=== PATIENT | female | born 1970 ===

== ENCOUNTER 2017-07-01 11:57 | Emergency (ER) | payer OTHER ==
[2017-07-01] MEDS ORDERED: Aluminum Hydroxide/Magnesium Hydroxide Susp (30 mL) PO STA (12:46)
[2017-07-01 13:03] LABS: SQUAMOUS EPITHIAL 2 /hpf (0-5); URINE BILIRUBIN NEGATIVE (NEGATIVE); URINE BLOOD 2+ (NEGATIVE); URINE CALCIUM OXALATE CRYSTALS MANY /hpf (<OCC); URINE CLARITY Hazy (Clear); URINE COLOR Yellow (YELLOW); URINE GLUCOSE (UA) NORMAL (Normal); URINE HYALINE CAST 0-2 /lpf (0-2); URINE LEUKOCYTE ESTERASE NEG Leu/uL (Negative); URINE PROTEIN 2+ mg/dL (NEGATIVE); URINE UROBILINOGEN NORMAL mg/dL (0.2-1.0)
[2017-07-01] MEDS ORDERED: Aluminum Hydroxide/Magnesium Hydroxide Susp (30 mL) ONE (13:06)
[2017-07-01 13:15] LABS: BASO % 0.3 % (0.0-2.0); EOS # 0.2 K/uL (0.0-0.7); EOS % 2.8 % (0.0-4.0); HEMOGLOBIN 13.7 g/dL (11.0-16.0); LYMPH # 1.4 K/uL (1.0-4.3); LYMPH % 23.7 % (20.0-40.0); MEAN CELL VOLUME 87.4 fL (81.0-99.0); MEAN CORPUSCULAR HEMOGLOBIN 30.9 pg (27.0-31.0); MEAN CORPUSCULAR HGB CONC 35.3 g/dL (33.0-37.0); MEAN PLATELET VOLUME 8.1 fL (7.2-11.7); MONO # 0.4 K/uL (0.0-0.8); MONO % 7.4 % (0.0-10.0); NEUT % 65.8 % (50.0-75.0); NRBC % 0.1 % (0.0-2.0); RBC 4.45 Mil/uL (3.80-5.20); RED CELL DISTRIBUTION WIDTH 13.3 % (11.5-14.5); WHITE BLOOD COUNT 6.1 K/uL (4.8-10.8)
--- NOTE | 2017-07-01 13:27 | C.PDOC ---
History Of Present Illness 46yo female, presents to ED with complaints of epigastric pain since last night. She describes the pain as a burning sensation and is associated with nausea. Patient states last night, she had eggs, black beans and rice, which is within her normal diet; patient states her last bowel movement was this morning and was normal. She denies any urinary discomfort, back pain, fever, chills, chest pain, diarrhea. Patient reports she has a family history of gallbladder disease and she is concerned her presentation may be related to her gallbladder. She has no other medical complaints. Time Seen by Provider: 07/01/17 12:39 Chief Complaint (Nursing): Abdominal Pain History Per: Patient History/Exam Limitations: no limitations Onset/Duration Of Symptoms: Days Current Symptoms Are (Timing): Still Present Location Of Pain/Discomfort: Epigastric Quality Of Discomfort: Burning, "Pain" Associated Symptoms: Nausea. denies: Vomiting, Back Pain, Urinary Symptoms Past Medical History Reviewed: Historical Data, Nursing Documentation, Vital Signs Vital Signs: Last Vital Signs Temp 98.2 F 07/01/17 14:10 Pulse 72 07/01/17 14:10 Resp 18 07/01/17 14:10 BP 126/78 07/01/17 14:10 Pulse Ox 99 07/01/17 14:10 - Medical History PMH: Hyperthyroidism Surgical History: No Surg Hx Family History: States: Other - Social History Hx Alcohol Use: No Hx Substance Use: No - Immunization History Hx Tetanus Toxoid Vaccination: Yes Hx Influenza Vaccination: Yes Hx Pneumococcal Vaccination: Yes Review Of Systems Except As Marked, All Systems Reviewed And Found Negative. Constitutional: Negative for: Fever, Chills Cardiovascular: Negative for: Chest Pain Respiratory: Negative for: Shortness of Breath Gastrointestinal: Positive for: Nausea, Abdominal Pain. Negative for: Vomiting , Diarrhea Genitourinary: Negative for: Frequency, Hematuria Musculoskeletal: Negative for: Back Pain Physical Exam - Physical Exam Appears: Non-toxic, No Acute Distress Skin: Normal Color, Warm, Dry Head: Atraumatic, Normacephalic Eye(s): bilateral: Normal Inspection, EOMI Neck: Normal ROM, Supple Chest: Symmetrical Cardiovascular: Rhythm Regular Respiratory: Normal Breath Sounds, No Wheezing Gastrointestinal/Abdominal: Normal Exam, Soft, No Tenderness, No Mass, No Distention, No Guarding, No Rebound Back: Normal Inspection, No CVA Tenderness Extremity: Bilateral: Atraumatic, Normal ROM Neurological/Psych: Oriented x3, Normal Speech ED Course And Treatment - Laboratory Results Result Diagrams: 07/01/17 13:09 07/01/17 13:09 O2 Sat by Pulse Oximetry: 98 (RA) Pulse Ox Interpretation: Normal Medical Decision Making Medical Decision Making: Impression: Epigastric abdominal pain Plan: -- Labs -- Urinalysis -- Maalox 30 ml PO -- Pepcid 20 mg PO Labs reviewed and unremarkable, UA clean Patient was re-evaluated and states she is feeling better. Abdomen remains soft non-distended and non-tender. Discuss results with patient and explain pain could be related to dyspepsia or gastritis. Advise to watch diet and to take Pepcid as needed for pain. Patient stable for discharge. Disposition Counseled Patient/Family Regarding: Diagnosis, Need For Followup - Disposition Disposition: HOME/ ROUTINE Disposition Time: 13:53 Condition: STABLE Additional Instructions: Rx sent to [facility] pharmacy Follow up with your primary medical doctor or clinic in 2-5 days for further evaluation. Take medications as prescribed. Return to the emergency department at any time if symptoms persist or worsen. Prescriptions: Famotidine [Pepcid] 20 mg PO DAILY #20 tab Instructions: Gastritis (DC) Forms: [employer] (Bahraini) Print Language: GREEK - POA Present On Arrival: None - Clinical Impression Clinical Impression: Gastritis - PA / TRAINING REPRESENTATIVE / Resident Statement MD/DO has reviewed & agrees with the documentation as recorded. - Scribe Statement The provider has reviewed the documentation as recorded by the Scribe (Rosa Ramírez) Provider Attestation: All medical record entries made by the Christianibchristian were at my direction and personally dictated by me. I have reviewed the chart and agree that the record accurately reflects my personal performance of the history, physical exam, medical decision making, and the department course for this patient. I have also personally directed, reviewed, and agree with the discharge instructions and disposition.
[2017-07-01 13:35] LABS: ALB/GLOB RATIO 1.1 (1.0-2.1); ALBUMIN 3.7 g/dL (3.5-5.0); ALT/SGPT 39 U/L (9-52); AST/SGOT 36 U/L (14-36); BLOOD UREA NITROGEN 13 mg/dL (7-17); CALCIUM 8.9 mg/dl (8.6-10.4); GFR AFRICAN-AMERICAN > 60; GFR NON-AFRICAN AMERICAN > 60; LIPASE 32 U/L (23-300)
[2017-07-01 14:11] VITALS: BP 126/78; PULSE 72; RESP 18; TEMP 98.2
[2017-07-01 14:52] VITALS: O2SAT 98
== END 2017-07-01 14:12 | disposition home or self-care (01) ==
LOC: C.ER 11:57
DX: K29.70 Gastritis, unspecified, without bleeding (principal)

== ENCOUNTER 2017-08-24 08:28 | Emergency (ER) | payer OTHER ==
[2017-08-24 08:33] VITALS: BMI 27.8
[2017-08-24] MEDS ORDERED: Iohexol 240 (50 ml) PO STA (08:59)
[2017-08-24] MEDS ORDERED: Sodium Chloride 0.9% 500 ML IV ONE (08:59)
--- NOTE | 2017-08-24 09:01 | C.PDOC ---
History Of Present Illness 47 year old female with a history of a plastic surgery procedure ("tummy tuck") performed in [place] on 07/09/17 presents to the emergency department with complaints of pain and and redness at the suture line on her stomach. She reports a clear discharge from the site at her umbilical area. She denies fever , nausea, vomiting, and diarrhea. Time Seen by Provider: 08/24/17 08:37 Chief Complaint (Nursing): Abnormal Skin Integrity History Per: Patient History/Exam Limitations: no limitations Onset/Duration Of Symptoms: Days (1) Current Symptoms Are (Timing): Still Present Location Of Injury: Anterior: Abdomen Past Medical History Reviewed: Historical Data, Nursing Documentation, Vital Signs Vital Signs: Last Vital Signs Temp 98.2 F 08/24/17 15:59 Pulse 72 08/24/17 15:59 Resp 16 08/24/17 15:59 BP 131/70 08/24/17 15:59 Pulse Ox 98 08/24/17 18:49 - Medical History PMH: Hyperthyroidism Other Surgeries: Plastic surgery "tummy tuck" procedure Family History: States: No Known Family Hx - Social History Hx Alcohol Use: No Hx Substance Use: No - Immunization History Hx Tetanus Toxoid Vaccination: Yes Hx Influenza Vaccination: Yes Hx Pneumococcal Vaccination: Yes Review Of Systems Except As Marked, All Systems Reviewed And Found Negative. Constitutional: Negative for: Fever Gastrointestinal: Positive for: Abdominal Pain, Other (discharge from abdominal scar). Negative for: Nausea, Vomiting, Diarrhea Skin: Positive for: Other (erythema present at abdominal suture line) Physical Exam - Physical Exam Appears: Well, Non-toxic, No Acute Distress Skin: Other (positive horizontal scar present at right pubic area, small 1.5 cm linear superficial dehisense noted on rlq with minimal clear d/c, erythema present at right-side of abdomen, erythema of umbilicus noted) Head: Atraumatic, Normacephalic Nose: Normal Neck: Normal, Supple Chest: Symmetrical Cardiovascular: Rhythm Regular Respiratory: Normal Breath Sounds, No Rales, No Rhonchi, No Wheezing Gastrointestinal/Abdominal: Soft, Tenderness (to palpation at horizontal pubic scar of rlq), No Guarding, No Rebound Back: Normal Inspection Extremity: Normal ROM Neurological/Psych: Oriented x3, Normal Speech, Normal Cognition, Normal Motor, Normal Sensation ED Course And Treatment - Laboratory Results Result Diagrams: 08/24/17 09:42 08/24/17 09:42 O2 Sat by Pulse Oximetry: 98 (RA) Pulse Ox Interpretation: Normal - CT Scan/US CT Abdomen and Pelvis Other Rad Studies (CT/US): Read By Radiologist, Radiology Report Reviewed CT/US Interpretation: HISTORY: Abdominal pain. COMPARISON: No prior studies available comparison the. TECHNIQUE: Contiguous axial images of the abdomen and pelvis performed following oral and intravenous injection of 100 cc Visipaque 320 contrast material. Additional 2D sagittal and coronal reformats generated. Radiation dose: Total exam DLP = 669.61 mGy-cm. This CT exam was performed using one or more of the following dose reduction techniques: Automated exposure control, adjustment of the mA and/or kV according to patient size, and/or use of iterative reconstruction technique. FINDINGS: LOWER THORAX : Bilateral breast implants are present. Lung bases clear. . Minor scarring and subsegmental atelectasis seen right lung base. No evidence of effusion or basilar pneumothorax. Heart size is within range of normal. No significant pericardial effusion. There is a tiny hiatal hernia. LIVER: The liver exhibits normal size. No obvious hepatic masses or collections. Portal and splenic veins are opacified. GALLBLADDER AND BILE DUCTS: The gallbladder physiologically distended. No evidence of intraluminal gallbladder calculi. PANCREAS: The pancreas unremarkable without masses collections or calcifications. SPLEEN: The spleen exhibits normal size and attenuation pattern. ADRENALS: No adrenal lesions. KIDNEYS AND URETERS: Kidneys demonstrate symmetric nephrograms. No evidence of nephrolithiasis or hydronephrosis. BLADDER: Urinary bladder appears incompletely distended which presumably accounts for thick-walled appearance. Correlation with urinalysis recommended to exclude the possibility of a cystitis. REPRODUCTIVE: Unremarkable as visualized. APPENDIX: Appendectomy. BOWEL: The stomach is distended with oral contrast material and air. Visualized loops of small bowel exhibit relatively normal contour. Several the the loops of proximal small bowel left upper and mid abdomen exhibit slight thick-walled appearance. Rule out enteritis. No evidence of acute mechanical small bowel obstruction with oral contrast material seen extending into the colon to the level of the rectum. . PERITONEUM: Unremarkable. No fluid collection. No free air. LYMPH NODES: There are a few small nonspecific bilateral lymph nodes possibly reactive. Nodes. VASCULATURE: Unremarkable. No aortic aneurysm. BONES: Minor multilevel degenerative spondylosis of the lower thoracic and lumbar spine. No acute compression fractures no retropulsed fragments. OTHER FINDINGS : There are a moderate to significant infiltration changes seen within the subcutaneous tissues of the lower and mid abdominal wall with less significant infiltration along the upper abdominal region. Findings most consistent with sequela of prior postoperative abdominoplasty. Clinical correlation with surgical history. There is the bulbous appearance of the mid rectus abdominal musculature which could be postoperative as well. The the. IMPRESSION: Bilateral breast implants. Mild subsegmental atelectasis and scarring right lung base. There is minor thick-walled appearance short segment proximal small bowel left upper and mid abdomen on nonspecific; rule out enteritis. . Infiltration changes within the subcutaneous tissues of the mid and lower abdominal wall, the latter more significant than former. . Postsurgical sequela findings most likely represent postsurgical sequela of prior abdominoplasty however clinical correlation recommended. Appendectomy. Discussed with BRENNA Babcock at approximately 12:30 p.m. with written down and read back verification. Progress Note: Plan: CT Abdomen and Pelvis. CMP. Lipase. CBC. NaCl IV Fluids. Tylenol 650mg PO. Urinalysis Reassessment Condition: Improved (denies any pain) Medical Decision Making Medical Decision Making: Pt was seen by rn surgical pcu dr. Campos and discussed with Dr. Burton. Pt was cleared for d/c on abx and f/u with local plastic. Disposition Counseled Patient/Family Regarding: Studies Performed, Diagnosis, Need For Followup, Rx Given - Disposition Referrals: Juanjose Darling MD [Staff Provider] - [facility] [Outside] [facility] [Outside] Disposition: HOME/ ROUTINE Disposition Time: 15:17 Condition: STABLE Additional Instructions: FOLLOW UP WITH PLASTIC SURGEON AND PMD/CLINIC ON SATURDAY FOR RE-EVALUATION. DRINK PLENTY OF WATER AND CRANBERRY JUICE. PLEASE DO NOT LIFT ANYTHING UNTIL SYMPTOMS RESOLVED. IF SYMPOTMS GET WORES OR ANY NEW CONCERNING SYMPTOMS DEVELOP RETURN TO ED. Prescriptions: Sulfamethoxazole/Trimethoprim [Bactrim DS 800 mg-160 mg] 1 tab PO BID #20 tab Cephalexin [Keflex] 2 tab PO BID #28 cap Instructions: Urinary Tract Infection, Adult (DC), Cellulitis (Skin Infection) , Adult (DC) Forms: [facility] (Portuguese), Gen Discharge Inst Hungarian Print Language: AZERI - Clinical Impression Clinical Impression: Cellulitis, UTI (urinary tract infection) - PA / POLE SETTER / Resident Statement MD/DO has reviewed & agrees with the documentation as recorded. - Scribe Statement The provider has reviewed the documentation as recorded by the Scribe (Bonifacio Malone) All medical record entries made by the Scribe were at my direction and personally dictated by me. I have reviewed the chart and agree that the record accurately reflects my personal performance of the history, physical exam, medical decision making, and the department course for this patient. I have also personally directed, reviewed, and agree with the discharge instructions and disposition.
[2017-08-24] MEDS ORDERED: Iohexol 240 (50 ml) ONE (09:22)
[2017-08-24 09:50] LABS: BASO % 0.4 % (0.0-2.0); EOS # 0.2 K/uL (0.0-0.7); EOS % 2.4 % (0.0-4.0); HEMOGLOBIN 12.2 g/dL (11.0-16.0); LYMPH # 1.6 K/uL (1.0-4.3); LYMPH % 24.4 % (20.0-40.0); MEAN CORPUSCULAR HEMOGLOBIN 29.1 pg (27.0-31.0); MEAN CORPUSCULAR HGB CONC 33.9 g/dL (33.0-37.0); MONO # 0.5 K/uL (0.0-0.8); MONO % 7.5 % (0.0-10.0); NEUT # 4.2 K/uL (1.8-7.0); NEUT % 65.3 % (50.0-75.0); NRBC % 0.1 % (0.0-2.0); RBC 4.18 Mil/uL (3.80-5.20); RED CELL DISTRIBUTION WIDTH 13.7 % (11.5-14.5); WHITE BLOOD COUNT 6.5 K/uL (4.8-10.8)
[2017-08-24 10:01] LABS: HCG,QUALITATIVE URINE NEGATIVE (NEGATIVE)
[2017-08-24 10:05] LABS: ALB/GLOB RATIO 1.4 (1.0-2.1); ALBUMIN 4.2 g/dL (3.5-5.0); ALT/SGPT 41 U/L (9-52); AST/SGOT 37 U/L (14-36); BLOOD UREA NITROGEN 11 mg/dL (7-17); CALCIUM 9.2 mg/dl (8.6-10.4); GFR AFRICAN-AMERICAN > 60; GFR NON-AFRICAN AMERICAN > 60; LIPASE 38 U/L (23-300)
[2017-08-24 10:21] LABS: SQUAMOUS EPITHIAL 8 /hpf (0-5); URINE BILIRUBIN NEGATIVE (NEGATIVE); URINE BLOOD 2+ (NEGATIVE); URINE CALCIUM OXALATE CRYSTALS OCC /hpf (<OCC); URINE CLARITY Hazy (Clear); URINE COLOR Yellow (YELLOW); URINE GLUCOSE (UA) NORMAL (Normal); URINE LEUKOCYTE ESTERASE 2+ Leu/uL (Negative); URINE PROTEIN 1+ mg/dL (NEGATIVE)
[2017-08-24] MEDS ORDERED: Iodixanol 320 MG/ML 100 ML BOTTLE IV ONE (11:04)
--- NOTE | 2017-08-24 12:51 | CT ---
PROCEDURE: CT scan abdomen pelvis dated 08/24/2017 HISTORY: Abdominal pain COMPARISON: No prior studies available comparison the TECHNIQUE: Contiguous axial images of the abdomen and pelvis performed following oral and intravenous injection of 100 cc Visipaque 320 contrast material. Additional 2D sagittal and coronal reformats generated. Radiation dose: Total exam DLP = 669.61 mGy-cm. This CT exam was performed using one or more of the following dose reduction techniques: Automated exposure control, adjustment of the mA and/or kV according to patient size, and/or use of iterative reconstruction technique. FINDINGS: LOWER THORAX: Bilateral breast implants are present. Lung bases clear. . Minor scarring and subsegmental atelectasis seen right lung base. No evidence of effusion or basilar pneumothorax. Heart size is within range of normal. No significant pericardial effusion. There is a tiny hiatal hernia. LIVER: The liver exhibits normal size. No obvious hepatic masses or collections. Portal and splenic veins are opacified. GALLBLADDER AND BILE DUCTS: The gallbladder physiologically distended. No evidence of intraluminal gallbladder calculi. PANCREAS: The pancreas unremarkable without masses collections or calcifications. SPLEEN: The spleen exhibits normal size and attenuation pattern ADRENALS: No adrenal lesions. KIDNEYS AND URETERS: Kidneys demonstrate symmetric nephrograms. No evidence of nephrolithiasis or hydronephrosis. BLADDER: Urinary bladder appears incompletely distended which presumably accounts for thick-walled appearance. Correlation with urinalysis recommended to exclude the possibility of a cystitis. REPRODUCTIVE: Unremarkable as visualized APPENDIX: Appendectomy BOWEL: The stomach is distended with oral contrast material and air. Visualized loops of small bowel exhibit relatively normal contour. Several the the loops of proximal small bowel left upper and mid abdomen exhibit slight thick-walled appearance. Rule out enteritis. No evidence of acute mechanical small bowel obstruction with oral contrast material seen extending into the colon to the level of the rectum. . PERITONEUM: Unremarkable. No fluid collection. No free air. LYMPH NODES: There are a few small nonspecific bilateral lymph nodes possibly reactive. Nodes. VASCULATURE: Unremarkable. No aortic aneurysm. BONES: Minor multilevel degenerative spondylosis of the lower thoracic and lumbar spine. No acute compression fractures no retropulsed fragments. OTHER FINDINGS: There are a moderate to significant infiltration changes seen within the subcutaneous tissues of the lower and mid abdominal wall with less significant infiltration along the upper abdominal region. Findings most consistent with sequela of prior postoperative abdominoplasty. Clinical correlation with surgical history. There is the bulbous appearance of the mid rectus abdominal musculature which could be postoperative as well. The the. IMPRESSION: Bilateral breast implants. Mild subsegmental atelectasis and scarring right lung base. There is minor thick-walled appearance short segment proximal small bowel left upper and mid abdomen on nonspecific; rule out enteritis. . Infiltration changes within the subcutaneous tissues of the mid and lower abdominal wall, the latter more significant than former. . Postsurgical sequela findings most likely represent postsurgical sequela of prior abdominoplasty however clinical correlation recommended. Appendectomy. Discussed with BRENNA Babcock at approximately 12:30 p.m. with written down and read back verification.
[2017-08-24] MEDS ORDERED: Tmp-Smz 800 mg-160 mg DS Tab PO STA (15:14)
--- NOTE | 2017-08-24 15:35 | CP.PCM.CON ---
<Chuck Campos - Last Filed: 08/24/17 15:29> History of Present Illness - History of Present Illness History of Present Illness: General Surgery Consult note for Dr. Burton This 47F with a PMH of hypothyroid, and a abdominoplasty on July, in [facility] with Dr. Saurabh Yu presents today with drainage from her right lateral aspect of her inscision. She reports that after the surgery she was sent whom with two suction bulb drains and a 2 week course of abx Bactrim and Cipro. Three weeks later her drains where discontinued. She reports an uneventful recover without pain however yesterday when she bent down an opening developed in her incision ad white non odorus discharge was expressed. She denies any pain at the site, any fevers any chills, any chest pain or SOB. She presents today due to concerns about her drainage. PMH: Hypothryoid PSH: Abdominoplasty, Breast implants, tubal ligation Meds: None ALL: NKDA Social: Denies ETOH, Tobacco, or Drugs Review of Systems - Review of Systems All systems: reviewed and no additional remarkable complaints except - Constitutional Constitutional: absent: Anorexia, Chills - EENT Eyes: absent: Blurred Vision, Change in Vision Ears: absent: Ear Pain, Tinnitus, Disequilibrium - Cardiovascular Cardiovascular: absent: Chest Pain, Dyspnea, Dyspnea on Exertion - Respiratory Respiratory: absent: Cough, Dyspnea, Dyspnea on Exertion - Gastrointestinal Gastrointestinal: absent: Abdominal Pain, Belching, Bloating, Change in Bowel Habits, Diarrhea, Nausea, Vomiting - Genitourinary Genitourinary: absent: Dysuria - Menstruation Menstruation: Menopausal - Neurological Neurological: absent: Dizziness, Loss of Vision, Syncope Past Patient History - Past Social History Smoking Status: Current Some Days Smoker - ENDOCRINE/METABOLIC Hx Hyperthyroidism: Yes - PSYCHIATRIC Hx Substance Use: No - SURGICAL HISTORY Hx Surgeries: Yes Hx Tubal Ligation: Yes Other/Comment: ABDOMINALPLASTY? 07/09/17 - ANESTHESIA Hx Anesthesia: Yes Hx Anesthesia Reactions: No Meds Home Medications: Home Medication List Medication Instructions Recorded Confirmed Type Cephalexin [Keflex] 2 tab PO BID #28 cap 08/24/17 Rx Sulfamethoxazole/Trimethoprim 1 tab PO BID #20 tab 08/24/17 Rx [Bactrim DS 800 mg-160 mg] Allergies/Adverse Reactions: Allergies Allergy/AdvReac Type Severity Reaction Status Date / Time No Known Allergies Allergy Verified 08/24/17 08:32 Physical Exam - Constitutional Appears: Non-toxic, No Acute Distress - Head Exam Head Exam: ATRAUMATIC, NORMOCEPHALIC - Eye Exam Eye Exam: EOMI, Normal appearance - Respiratory Exam Respiratory Exam: NORMAL BREATHING PATTERN - Cardiovascular Exam Cardiovascular Exam: +S1, +S2 - GI/Abdominal Exam GI & Abdominal Exam: Soft. absent: Distended, Firm, Guarding, Hernia, Rebound, Rigid Additional comments: Horizontal incision with whit/yellow drainage expressed from kwabena right aspect, erythema noted periumbilically extending inferior to the right aspect of the incision. - Extremities Exam Extremities exam: Positive for: normal inspection - Neurological Exam Neurological exam: Alert, Oriented x3 - Skin Skin Exam: Erythema Results - Vital Signs Recent Vital Signs: Last Vital Signs Temp 97.9 F 08/24/17 08:33 Pulse 74 08/24/17 08:33 Resp 18 08/24/17 08:33 BP 121/79 08/24/17 08:33 Pulse Ox 98 08/24/17 15:29 - Labs Result Diagrams: 08/24/17 09:42 08/24/17 09:42 Labs: Laboratory Results - last 24 hr 08/24/17 08/24/17 08/24/17 09:42 09:42 09:42 WBC 6.5 RBC 4.18 Hgb 12.2 Hct 36.0 MCV 86.0 MCH 29.1 MCHC 33.9 RDW 13.7 Plt Count 247 MPV 8.0 Neut % (Auto) 65.3 Lymph % (Auto) 24.4 [place] % (Auto) 7.5 Eos % (Auto) 2.4 Baso % (Auto) 0.4 Neut # (Auto) 4.2 Lymph # (Auto) 1.6 [place] # (Auto) 0.5 Eos # (Auto) 0.2 Baso # (Auto) 0.0 Sodium 143 Potassium 3.7 Chloride 105 Carbon Dioxide 28 Anion Gap 13 BUN 11 Creatinine 0.5 L Est GFR ( Amer) > 60 Est GFR (Non-Af Amer) > 60 Random Glucose 99 Calcium 9.2 Total Bilirubin 0.6 AST 37 H ALT 41 Alkaline Phosphatase 85 Total Protein 7.3 Albumin 4.2 Globulin 3.0 Albumin/Globulin Ratio 1.4 Lipase 38 Urine Color Yellow Urine Clarity Hazy Urine pH 5.0 Ur Specific [place] 1.023 Urine Protein 1+ H Urine Glucose (UA) Normal Urine Ketones Trace Urine Blood 2+ H Urine Nitrate Negative Urine Bilirubin Negative Urine Urobilinogen 2.0 H Ur Leukocyte Esterase 2+ H Urine WBC (Auto) 8 H Urine RBC (Auto) 40 H Ur Squamous Epith Cells 8 H Calcium Oxalate Crystal Occ H Urine HCG, Qual Negative - Imaging and Cardiology CT scan - abdomen Status: Image reviewed by me, Report reviewed by me Assessment & Plan - Assessment and Plan (Free Text) Assessment: 47F s/p abdominoplasty with minor wound breakdown and drainage Vitals WNL CBC WNL Called and spoke with Dr. Yu, he said this is common after abdominoplasty and in the face of normal vitals and labs he recommends discharge home. He reports that often once the collection drains these occurrences are self limiting. Plan: Recommend discharge with 10 days Bactrim Follow up with Plastic surgery outpatient D/W Dr. Micheal Campos PGY2 <Amanda Burton - Last Filed: 08/24/17 17:56> Results - Vital Signs Recent Vital Signs: Last Vital Signs Temp 98.2 F 08/24/17 15:59 Pulse 72 08/24/17 15:59 Resp 16 08/24/17 15:59 BP 131/70 08/24/17 15:59 Pulse Ox 99 08/24/17 15:59 - Labs Result Diagrams: 08/24/17 09:42 08/24/17 09:42 Labs: Laboratory Results - last 24 hr 08/24/17 08/24/17 08/24/17 09:42 09:42 09:42 WBC 6.5 RBC 4.18 Hgb 12.2 Hct 36.0 MCV 86.0 MCH 29.1 MCHC 33.9 RDW 13.7 Plt Count 247 MPV 8.0 Neut % (Auto) 65.3 Lymph % (Auto) 24.4 [place] % (Auto) 7.5 Eos % (Auto) 2.4 Baso % (Auto) 0.4 Neut # (Auto) 4.2 Lymph # (Auto) 1.6 [place] # (Auto) 0.5 Eos # (Auto) 0.2 Baso # (Auto) 0.0 Sodium 143 Potassium 3.7 Chloride 105 Carbon Dioxide 28 Anion Gap 13 BUN 11 Creatinine 0.5 L Est GFR ( Amer) > 60 Est GFR (Non-Af Amer) > 60 Random Glucose 99 Calcium 9.2 Total Bilirubin 0.6 AST 37 H ALT 41 Alkaline Phosphatase 85 Total Protein 7.3 Albumin 4.2 Globulin 3.0 Albumin/Globulin Ratio 1.4 Lipase 38 Urine Color Yellow Urine Clarity Hazy Urine pH 5.0 Ur Specific [place] 1.023 Urine Protein 1+ H Urine Glucose (UA) Normal Urine Ketones Trace Urine Blood 2+ H Urine Nitrate Negative Urine Bilirubin Negative Urine Urobilinogen 2.0 H Ur Leukocyte Esterase 2+ H Urine WBC (Auto) 8 H Urine RBC (Auto) 40 H Ur Squamous Epith Cells 8 H Calcium Oxalate Crystal Occ H Urine HCG, Qual Negative Assessment & Plan - Assessment and Plan (Free Text) Plan: I personally saw and examined the patient with the resident staff and agree with the above assessment and plan. I personally reviewed the available diagnostic images and imaging reports. 47 female 6 weeks s/p abdominoplasty done in [place] 07/09/17, now with some drainage from right side of low transverse wound, overlying rubor; no fluctuance; min amount of saponified fluid expressed from 1.5cm area of wound separation. CT shows subcutaneous inflammation. We do not have operative report, but because abdominoplasty typically done with mesh, I would recommend abx course for superficial infection and follow up with plastic surgery. Bactrim/Keflex x 10 days. - Date & Time Date: 08/24/17 Time: 14:00
[2017-08-24] MEDS ORDERED: Tmp-Smz 800 mg-160 mg DS Tab ONE (15:56)
[2017-08-24 16:00] VITALS: BP 131/70; PULSE 72; RESP 16; TEMP 98.2
[2017-08-24 18:37] VITALS: O2SAT 98
== END 2017-08-24 15:59 | disposition home or self-care (01) ==
LOC: C.ER 08:28
DX: L03.311 Cellulitis of abdominal wall (principal); N39.0 Urinary tract infection, site not specified
CPT/HCPCS: 74177; 80053; 81001; 83690; 84703; 85025; 99284; J7040; Q9966; Q9967